=== PATIENT | male | born 1975 | race Two or more races ===

== ENCOUNTER 2021-07-10 20:47 | Emergency (ER) | payer OTHER ==
[~2021-07-10] VITALS: Ht 188 cm; Wt 121.6 kg
== END 2021-07-10 22:06 | disposition home or self-care (01) ==
LOC: ER 20:47
DX: S60.419A Abrasion of unspecified finger, initial encounter (principal); W45.8XXA Other foreign body or object entering through skin, initial encounter; Y93.89 Activity, other specified; Y92.89 Other specified places as the place of occurrence of the external cause